=== PATIENT | female | born 2000 | race Caucasian/White ===

== ENCOUNTER 2023-09-06 08:17 | Day surgery (SDC) | payer OTHER ==
[~2023-09-06] VITALS: Ht 170.2 cm; Wt 61.2 kg
[2023-09-06] MEDS ORDERED: LR 1,000 ML IV SCH (08:45)
[2023-09-06] MEDS ORDERED: OXYMETAZOLINE 0.05% NASAL SPRAY (AFRIN) As Ordered ONE (09:48)
[2023-09-06] MEDS ORDERED: dexmedeTOMIDine (4MCG/ML)200MCG/50ML BTL (PRECEDEX) As Ordered ONE (10:31)
[2023-09-06] MEDS ORDERED: ONDANSETRON 4MG 2ML VIAL As Ordered ONE (10:31)
[2023-09-06] MEDS ORDERED: METOCLOPRAMIDE INJ 10MG/2ML VIAL As Ordered ONE (10:31)
[2023-09-06] MEDS ORDERED: fentaNYL 100 MCG/2 ML INJECTION As Ordered ONE (10:31)
[2023-09-06] MEDS ORDERED: propofoL 200 MG/20 ML VIAL As Ordered ONE (10:31)
[2023-09-06] MEDS ORDERED: LIDOCAINE 2% 100MG/5ML SDV (FOR ANES.) As Ordered ONE (10:31)
[2023-09-06] MEDS ORDERED: ACETAMINOPHEN 1000MG 100ML IV BAG As Ordered ONE (10:31)
[2023-09-06] MEDS ORDERED: MIDAZOLAM INJ 2MG/2ML VIAL As Ordered ONE (10:31)
[2023-09-06] MEDS ORDERED: ePHEDrine SULFATE 25 MG/5 ML(5MG/ML) SYRINGE As Ordered ONE (10:31)
[2023-09-06] MEDS ORDERED: ONDANSETRON 4MG 2ML VIAL IV PRN (10:40)
[2023-09-06] MEDS ORDERED: HYDROMORPHONE HCL 0.5 MG/ 0.5 ML SYRINGE IV PRN (10:40)
[2023-09-06] MEDS ORDERED: oxyCODONE 5MG TAB PO PRN (10:40)
[2023-09-06] MEDS ORDERED: fentaNYL 100 MCG/2 ML INJECTION IV PRN (10:40)
[2023-09-06 11:40] VITALS: BP 109/65; TEMP 98; O2SAT 100
== END 2023-09-06 12:30 | disposition home or self-care (01) ==
LOC: M SDC 08:17
PROVIDERS: ATTEND Otolaryngology
DX: J35.01 Chronic tonsillitis (principal); Z88.7 Allergy status to serum and vaccine
CPT/HCPCS: 42826; 81025; 88302; J0131; J1100; J1170; J2250; J2405; J2765; J3010

== ENCOUNTER 2023-09-11 13:19 | Emergency (ER) | payer OTHER ==
[~2023-09-11] VITALS: Ht 170.2 cm; Wt 62.5 kg
[2023-09-11] MEDS ORDERED: IBUP100S17 (13:29)
[2023-09-11] MEDS ORDERED: HYDROCODONE-ACETAMN (13:29)
[2023-09-11 14:40] VITALS: BP 104/55; TEMP 98.2; O2SAT 98
== END 2023-09-11 14:42 | disposition home or self-care (01) ==
LOC: M ED 13:19
DX: J95.830 Postprocedural hemorrhage of a respiratory system organ or structure following a respiratory system procedure (principal); Z88.7 Allergy status to serum and vaccine; Z88.8 Allergy status to other drugs, medicaments and biological substances

== ENCOUNTER → 2024-01-04 | Outpatient (REF) | payer OTHER ==
[~2024-01-04] MED LIST: HYDROCODONE-ACETAMN; IBUP100S17
[2024-01-04 14:17] LABS: APPEARANCE, URINE CLEAR (CLEAR); BACTERIA, URINE AUTO NEGATIVE (NEGATIVE); BILIRUBIN, URINE AUTO NEGATIVE (NEGATIVE); BLOOD, URINE BLOOD NEGATIVE (NEGATIVE); COLOR, URINE YELLOW (YELLOW); GLUCOSE, URINE (UA) AUTO NEGATIVE (NEGATIVE); KETONE, URINE AUTO NEGATIVE (NEGATIVE); LEUKOCYTE ESTERASE, URINE AUTO NEGATIVE (NEGATIVE); NITRITE, URINE AUTO NEGATIVE (NEGATIVE); PROTEIN, URINE AUTO NEGATIVE (NEGATIVE); RBC, URINE AUTO 0 /HPF (0-3); SPECIFIC GRAVITY URINE AUTO 1.017 (1.002-1.035); SQUAMOUS EPITHELIAL CELL UR AU 1 /HPF (0-6); UROBILINOGEN, URINE AUTO 0.2 mg/dL (0.0-2.0); WBC, URINE AUTO 0 /HPF (0-3)
== END ==
LOC: M SMT 12:47
PROVIDERS: ATTEND Specialist
DX: N32.81 Overactive bladder (principal)

== ENCOUNTER 2024-02-28 13:37 | Emergency (ER) | payer OTHER ==
[~2024-02-28] VITALS: Ht 172.7 cm; Wt 63.6 kg
[2024-02-28] MEDS ORDERED: HYDR50TA70 (16:11)
[2024-02-28] MEDS ORDERED: PENT10CA (16:11)
[2024-02-28] MEDS ORDERED: TOLT4CAP3 (16:11)
[2024-02-28] MEDS: ACETAMINOPHEN TAB 650MG DOSE (2X325MG) PO ONE (17:12)
[2024-02-28 17:48] VITALS: BP 117/73; TEMP 97.7; O2SAT 99
== END 2024-02-28 17:49 | disposition home or self-care (01) ==
LOC: M ED 13:37
DX: R51.9 Headache, unspecified (principal); V49.40XA Driver injured in collision with unspecified motor vehicles in traffic accident, initial encounter; F10.10 Alcohol abuse, uncomplicated; Z88.8 Allergy status to other drugs, medicaments and biological substances; Z79.1 Long term (current) use of non-steroidal anti-inflammatories (NSAID); Z79.899 Other long term (current) drug therapy; Y92.9 Unspecified place or not applicable; Y93.9 Activity, unspecified; Y99.9 Unspecified external cause status

== ENCOUNTER 2024-06-16 09:28 | Emergency (ER) | payer OTHER ==
[~2024-06-16] VITALS: Ht 170.2 cm; Wt 68.6 kg
[~2024-06-16 09:28] MED LIST changes: +HYDR50TA70; +PENT10CA; +TOLT4CAP3
[2024-06-16 11:06] LABS: HCG, SERUM QUALITATIVE NEGATIVE (NEGATIVE)
[2024-06-16 12:35] VITALS: TEMP 98.2
[2024-06-16 12:51] VITALS: BP 105/64; O2SAT 100
== END 2024-06-16 12:55 | disposition home or self-care (01) ==
LOC: M ED 09:28
DX: R55 Syncope and collapse (principal); S00.93XA Contusion of unspecified part of head, initial encounter; W22.10XA Striking against or struck by unspecified automobile airbag, initial encounter; Y92.410 Unspecified street and highway as the place of occurrence of the external cause; Y93.9 Activity, unspecified; Y99.9 Unspecified external cause status; V47.5XXA Car driver injured in collision with fixed or stationary object in traffic accident, initial encounter; Z88.7 Allergy status to serum and vaccine; Z79.1 Long term (current) use of non-steroidal anti-inflammatories (NSAID); Z79.899 Other long term (current) drug therapy

== ENCOUNTER → 2024-08-13 | Outpatient (CLI) | payer OTHER | LOC: M RAD 10:51 | PROVIDERS: ATTEND Specialist | DX: N30.10 Interstitial cystitis (chronic) without hematuria (principal) ==

== ENCOUNTER 2024-09-09 11:46 | Day surgery (SDC) | payer OTHER ==
[~2024-09-09] VITALS: Ht 170.2 cm; Wt 67.6 kg
[~2024-09-09 11:46] MED LIST changes: +BOTOX THERAPEUTIC 100 UNIT VIAL INJ ONE; +CIDA500T2 PO; +ORTH1TAB8 PO; +[UNRECOGNIZED DRUG - CODE] PO; +ceFAZolin SOD 2 GM in IV 1 EA IV ONE
[2024-09-09] MEDS: NS 1,000 ML IV SCH (12:20)
[2024-09-09] MEDS ORDERED: ONDANSETRON 4MG 2ML VIAL As Ordered ONE (15:36)
[2024-09-09] MEDS ORDERED: ACETAMINOPHEN 1000MG 100ML IV BAG As Ordered ONE (15:36)
[2024-09-09] MEDS ORDERED: fentaNYL 100 MCG/2 ML INJECTION As Ordered ONE (15:36)
[2024-09-09] MEDS ORDERED: MIDAZOLAM INJ 2MG/2ML VIAL As Ordered ONE (15:36)
[2024-09-09] MEDS ORDERED: LIDOCAINE 2% 100MG/5ML SDV (FOR ANES.) As Ordered ONE (15:36)
[2024-09-09] MEDS ORDERED: propofoL 200 MG/20 ML VIAL As Ordered ONE (15:36)
[2024-09-09] MEDS: ceFAZolin SOD 2 GM in IV 1 EA IV ONE (16:05)
[2024-09-09] MEDS ORDERED: KETOROLAC 60MG 2ML VIAL As Ordered ONE (16:16)
[2024-09-09] MEDS: BOTOX THERAPEUTIC 100 UNIT VIAL INJ ONE (16:20)
[2024-09-09] MEDS: TRIAMCINOLONE ACETONIDE SUSP 40MG/ML 1ML VIAL As Ordered ONE (16:21)
[2024-09-09] MEDS: LIDOCAINE 2% 5ML JELLY UROJET As Ordered ONE (16:21)
[2024-09-09] MEDS: LIDOCAINE 1% MDV 50ML VIAL As Ordered ONE (16:21)
[2024-09-09] MEDS: BOTOX THERAPEUTIC 100 UNIT VIAL As Ordered ONE (16:21)
[2024-09-09] MEDS ORDERED: MEPERIDINE 25 MG/ML 1ML VIAL IV PRN (16:40)
[2024-09-09] MEDS ORDERED: METOCLOPRAMIDE INJ 10MG/2ML VIAL IV PRN (16:40)
[2024-09-09] MEDS ORDERED: fentaNYL 100 MCG/2 ML INJECTION IV PRN (16:40)
[2024-09-09] MEDS ORDERED: oxyCODONE 5MG TAB PO PRN (16:40)
[2024-09-09] MEDS ORDERED: diphenhydrAMINE 50MG/ML VIAL IV PRN (16:40)
[2024-09-09] MEDS ORDERED: ONDANSETRON 4MG 2ML VIAL IV PRN (16:40)
[2024-09-09 18:00] VITALS: BP 117/74; TEMP 97.9; O2SAT 100
== END 2024-09-09 18:15 | disposition home or self-care (01) ==
LOC: M SDC 11:46
PROVIDERS: ATTEND Specialist
DX: N30.10 Interstitial cystitis (chronic) without hematuria (principal); R39.15 Urgency of urination; R35.0 Frequency of micturition; R32 Unspecified urinary incontinence; N32.89 Other specified disorders of bladder; Z88.7 Allergy status to serum and vaccine
CPT/HCPCS: 52234; 52260; 52287; 81025; 88305; J0131; J0585; J0690; J1100; J1885; J2250; J2405; J3010

== ENCOUNTER → 2024-09-23 | Outpatient (REF) | payer OTHER ==
[~2024-09-23] MED LIST changes: -BOTOX THERAPEUTIC 100 UNIT VIAL INJ ONE; -ceFAZolin SOD 2 GM in IV 1 EA IV ONE
[2024-09-23 13:44] LABS: APPEARANCE, URINE CLEAR (CLEAR); BACTERIA, URINE AUTO NEGATIVE (NEGATIVE); BILIRUBIN, URINE AUTO NEGATIVE (NEGATIVE); BLOOD, URINE BLOOD 1+ (NEGATIVE); COLOR, URINE YELLOW (YELLOW); GLUCOSE, URINE (UA) AUTO NEGATIVE (NEGATIVE); KETONE, URINE AUTO NEGATIVE (NEGATIVE); LEUKOCYTE ESTERASE, URINE AUTO NEGATIVE (NEGATIVE); NITRITE, URINE AUTO NEGATIVE (NEGATIVE); PROTEIN, URINE AUTO NEGATIVE (NEGATIVE); RBC, URINE AUTO 0 /HPF (0-3); SPECIFIC GRAVITY URINE AUTO 1.018 (1.002-1.035); SQUAMOUS EPITHELIAL CELL UR AU 1 /HPF (0-6); UROBILINOGEN, URINE AUTO 0.2 mg/dL (0.0-2.0); WBC, URINE AUTO 2 /HPF (0-3)
== END ==
LOC: M SMT 13:29
PROVIDERS: ATTEND Nurse Practitioner Family
DX: N30.10 Interstitial cystitis (chronic) without hematuria (principal)

== ENCOUNTER 2024-10-21 21:04 | Emergency (ER) | payer OTHER ==
[~2024-10-21] VITALS: Ht 170.2 cm; Wt 66.6 kg
[2024-10-21 21:08] VITALS: TEMP 99.4
[2024-10-21 21:55] LABS: BASO % 0.4 % (0.0-1.0); EOS % 0.8 % (0.0-3.0); HEMATOCRIT 42.1 % (36.0-47.0); HEMOGLOBIN 14.3 g/dl (12.0-15.5); LYMPH # 0.5 10^3/uL (1.5-5.0); LYMPH % 10.6 % (24.0-44.0); MEAN CORPUSCULAR HEMOGLOBIN 30.2 pg (27.0-33.0); MEAN CORPUSCULAR VOLUME 88.8 fl (80.0-96.0); MONO # 0.5 10^3/uL (0.0-0.8); NEUTROPHILS # 3.9 10^3/uL (1.5-8.5); NEUTROPHILS % 77.8 % (36.0-66.0); PLATELET COUNT, AUTOMATED 252 10^3/uL (150-450); RED BLOOD COUNT 4.74 10^6/uL (4.00-5.40)
[2024-10-21] MEDS ORDERED: ONDANSETRON 4MG 2ML VIAL As Ordered ONE (22:09)
[2024-10-21] MEDS: ACETAMINOPHEN *IV* 1,000 MG in IV 1 EA IV ONE (22:13)
[2024-10-21] MEDS: ONDANSETRON 4MG 2ML VIAL IV ONE (22:13)
[2024-10-21 22:18] LABS: LIPASE 27 U/L (12-53)
[2024-10-21 22:20] LABS: ALBUMIN 3.8 G/DL (3.2-5.2); ALKALINE PHOSPHATASE 64 U/L (35-104); ALT/SGPT 15 U/L (7.0-40); AST/SGOT 16 U/L (<34); BILIRUBIN,DIRECT 0.2 MG/DL (<0.4); BILIRUBIN,TOTAL 0.6 MG/DL (0.3-1.2); BLOOD UREA NITROGEN 13 MG/DL (9-23); CALCIUM LEVEL 9.5 MG/DL (8.5-10.1); CARBON DIOXIDE LEVEL 23 MMOL/L (20-31); CHLORIDE LEVEL 102 MMOL/L (98-107); CREATININE FOR GFR 0.77 MG/DL (0.55-1.30); GLOMERULAR FILTRATION RATE > 60.0 (>60); GLUCOSE, FASTING 99 MG/DL (60-100); POTASSIUM SERUM 3.7 MMOL/L (3.5-5.1); SODIUM LEVEL 135 MMOL/L (136-145); TOTAL PROTEIN 7.3 G/DL (5.7-8.2)
[2024-10-21 22:24] LABS: CK-MB VALUE MASS < 1.0 NG/ML (<3.6)
[2024-10-21 22:26] LABS: CPK CREATINE PHOSPHOKINASE 48 U/L (34-145); MB/CK RELATIVE INDEX 2.08 (< OR =4)
[2024-10-22 00:40] VITALS: BP 102/49; O2SAT 98
[2024-10-22] MEDS ORDERED: ONDA-282 PO (01:01)
[2024-10-22] MEDS: ONDANSETRON 4MG ORAL DISINTEGRATING TAB PO ONE (01:08)
[2024-10-22] MEDS ORDERED: ONDANSETRON 4MG ORAL DISINTEGRATING TAB PO ONE (01:10)
== END 2024-10-22 01:09 | disposition home or self-care (01) ==
LOC: M ED 21:04
DX: A09 Infectious gastroenteritis and colitis, unspecified (principal); R00.0 Tachycardia, unspecified; Z88.7 Allergy status to serum and vaccine; Z79.899 Other long term (current) drug therapy
CPT/HCPCS: 80048; 80076; 82550; 82553; 83690; 84484; 85025; 93005; 96374; 96375; 99284; J0131; J2405

== ENCOUNTER 2025-01-27 08:00 | Day surgery (SDC) | payer OTHER ==
[~2025-01-27] VITALS: Ht 170.2 cm; Wt 66.3 kg
[~2025-01-27 08:00] MED LIST changes: +LORA-930 PO; +NORG1TAB40 PO; +ONDA-282 PO; -PENT10CA; +PENT10CA PO
[2025-01-27] MEDS ORDERED: MIDAZOLAM INJ 2MG/2ML VIAL As Ordered ONE (08:44)
[2025-01-27] MEDS ORDERED: fentaNYL 100 MCG/2 ML INJECTION As Ordered ONE (08:44)
[2025-01-27] MEDS ORDERED: propofoL 200 MG/20 ML VIAL As Ordered ONE (08:45)
[2025-01-27] MEDS ORDERED: ONDANSETRON 4MG 2ML VIAL As Ordered ONE (08:45)
[2025-01-27] MEDS ORDERED: LIDOCAINE 2% INJ 100 MG/5 ML SYRINGE As Ordered ONE (08:45)
[2025-01-27] MEDS: ceFAZolin SOD 2 GM IV ONCE IV ONE (09:45)
[2025-01-27] MEDS: BOTOX THERAPEUTIC 100 UNIT VIAL As Ordered ONE (09:50)
[2025-01-27] MEDS ORDERED: dexmedeTOMIDine (4MCG/ML)200MCG/50ML BTL (PRECEDEX) As Ordered ONE (09:59)
[2025-01-27] MEDS: LIDOCAINE 2% MDV 20ML VIAL As Ordered ONE (10:30)
[2025-01-27] MEDS: LIDOCAINE 2% JELLY 6ML SYRINGE As Ordered ONE (10:30)
[2025-01-27] MEDS: TRIAMCINOLONE ACETONIDE SUSP 40MG/ML 1ML VIAL As Ordered ONE (10:30)
[2025-01-27] MEDS ORDERED: ONDANSETRON 4MG 2ML VIAL IV PRN (10:45)
[2025-01-27] MEDS ORDERED: fentaNYL 100 MCG/2 ML INJECTION IV PRN (10:45)
[2025-01-27] MEDS ORDERED: LR 1,000 ML IV SCH (10:45)
[2025-01-27] MEDS ORDERED: oxyCODONE 5MG TAB PO PRN (10:45)
[2025-01-27] MEDS ORDERED: HYDROMORPHONE HCL 0.5 MG/ 0.5 ML SYRINGE IV PRN (10:45)
[2025-01-27 11:35] VITALS: BP 112/56; TEMP 97.6; O2SAT 99
== END 2025-01-27 12:17 | disposition home or self-care (01) ==
LOC: M SDC 08:00
PROVIDERS: ATTEND Specialist
DX: N30.10 Interstitial cystitis (chronic) without hematuria (principal); N32.81 Overactive bladder; N39.41 Urge incontinence; R35.0 Frequency of micturition; N32.89 Other specified disorders of bladder; Z79.3 Long term (current) use of hormonal contraceptives; Z88.7 Allergy status to serum and vaccine
CPT/HCPCS: 52204; 52260; 52283; 52287; 81025; 88305; A4215; J0585; J0690; J1100; J2250; J2405; J3010; J3301

== ENCOUNTER → 2025-03-25 | Outpatient (REF) | payer OTHER ==
[2025-03-25 13:35] LABS: APPEARANCE, URINE CLEAR (CLEAR); BACTERIA, URINE AUTO NEGATIVE (NEGATIVE); BILIRUBIN, URINE AUTO NEGATIVE (NEGATIVE); BLOOD, URINE BLOOD NEGATIVE (NEGATIVE); COLOR, URINE STRAW (YELLOW); GLUCOSE, URINE (UA) AUTO NEGATIVE (NEGATIVE); KETONE, URINE AUTO NEGATIVE (NEGATIVE); LEUKOCYTE ESTERASE, URINE AUTO NEGATIVE (NEGATIVE); MUCUS, URINE SMALL (NEGATIVE); NITRITE, URINE AUTO NEGATIVE (NEGATIVE); PROTEIN, URINE AUTO NEGATIVE (NEGATIVE); RBC, URINE AUTO 0 /HPF (0-3); SPECIFIC GRAVITY URINE AUTO 1.012 (1.002-1.035); SQUAMOUS EPITHELIAL CELL UR AU 3 /HPF (0-6); UROBILINOGEN, URINE AUTO 0.2 mg/dL (0.0-2.0); WBC, URINE AUTO 1 /HPF (0-3)
== END ==
LOC: M SMT 13:04
PROVIDERS: ATTEND Specialist
DX: N32.81 Overactive bladder (principal)